=== PATIENT | female | born 1995 | race Caucasian/White ===

== ENCOUNTER 2019-11-08 12:57 | Outpatient (CLI) | payer OTHER ==
[2019-11-08 13:35] LABS: APPEARANCE,URINE CLOUDY; BILIRUBIN,URINE NEGATIVE (NEGATIVE); COLOR,URINE YELLOW; GLUCOSE, URINE NEGATIVE (NEGATIVE); KETONES,URINE NEGATIVE (NEGATIVE); LEUKOCYTE ESTERASE,URINE LARGE (NEGATIVE); NITRITE,URINE NEGATIVE (NEGATIVE); PROTEIN,URINE 30 mg/dL (NEGATIVE); URINE SPECIFIC GRAVITY 1.017; UROBILINOGEN,URINE NEGATIVE mg/dL (<2.0)
[2019-11-08 13:54] LABS: URINE AMPHETAMINES SCREEN NEGATIVE; URINE BARBITURATES SCREEN NEGATIVE; URINE BENZODIAZEPINES SCREEN NEGATIVE; URINE COCAINE SCREEN NEGATIVE; URINE MARIJUANA (THC) SCREEN NEGATIVE; URINE METHADONE SCREEN NEGATIVE; URINE PHENCYCLIDINE SCREEN NEGATIVE
--- NOTE | 2019-11-08 13:54 | Non Stress Test Report ---
Non Stress Test Datetime Report Generated by CPN: 11/08/2019 13:54 DEMOGRAPHIC EGA NST: 39.6 MONITORING Monitor Explained: Monitor Explained; Test Explained; Patient Verbalized Understanding Time on Monitor: 11/08/2019 13:22 Time off Monitor: 11/08/2019 13:51 NST Duration: 29 NST INTERVENTIONS NST Interventions: None Physician Notified NST: Dr Mcdonough BABY A: [id number] BABY A Movement : Present Contraction Frequency : irregular FHR Baseline : 140 Accelerations : 15X15 Decelerations : None Variability : Moderate 6-25bpm NST Review: Meets Criteria for Reactive NST NST Review and Verified By : TMartin,RN NST Results: Reactive NST REPORT Report Trigger: Send Report
== END 2019-11-08 14:03 | disposition home or self-care (01) ==
LOC: LC 12:57
PROVIDERS: ATTEND Obstetrics & Gynecology
DX: O24.419 Gestational diabetes mellitus in pregnancy, unspecified control (principal); Z3A.39 39 weeks gestation of pregnancy; Z91.030 Bee allergy status
CPT/HCPCS: 59025; 80307; 81005; 84112

== ENCOUNTER 2019-11-09 09:53 | Inpatient (IN) | payer OTHER ==
[2019-11-12] MEDS ORDERED: RINGERS SOLUTION,LACTATED 1,000 ML IV ONE (20:42)
[2019-11-12] MEDS ORDERED: RINGERS SOLUTION,LACTATED 1,000 ML IV PRN (20:42)
[2019-11-12 21:14] LABS: ABSOLUTE BASOPHILS # (AUTO) 0.2 10^3/uL (0.0-0.2); ABSOLUTE EOSINOPHILS # (AUTO) 0.1 10^3/uL (0.0-0.6); ABSOLUTE LYMPHOCYTES (AUTO) 1.7 10^3/uL (0.5-4.7); ABSOLUTE MONOCYTES (AUTO) 1.1 10^3/uL (0.1-1.4); BASOPHILS % (AUTO) 1.1 % (0-2); EOSINOPHILS % (AUTO) 0.8 % (0-6); HEMATOCRIT 33.5 % (36.0-47.0); HEMOGLOBIN 11.2 g/dL (12.0-15.5); LYMPHOCYTES % (AUTO) 12.1 % (13-45); MEAN CORPUSCULAR HEMOGLOBIN 25.8 pg (27.0-33.4); MEAN CORPUSCULAR HGB CONC 33.6 g/dL (32.0-36.0); MEAN CORPUSCULAR VOLUME 77 fl (80-97); MONOCYTES % (AUTO) 7.6 % (3-13); PLATELET COUNT 214 10^3/uL (150-450); RED BLOOD COUNT 4.36 10^6/uL (3.72-5.28); RED CELL DISTRIBUTION WIDTH 17.2 % (11.5-14.0); SEGMENTED NEUTROPHILS % (AUTO) 78.4 % (42-78); TOTAL CELLS COUNTED % (AUTO) 100 %; WHITE BLOOD COUNT 14.1 10^3/uL (4.0-10.5)
[2019-11-12 21:36] LABS: APPEARANCE,URINE SLIGHTLY-CLOUDY; BILIRUBIN,URINE NEGATIVE (NEGATIVE); COLOR,URINE YELLOW; GLUCOSE, URINE NEGATIVE (NEGATIVE); KETONES,URINE NEGATIVE (NEGATIVE); LEUKOCYTE ESTERASE,URINE SMALL (NEGATIVE); NITRITE,URINE NEGATIVE (NEGATIVE); PROTEIN,URINE NEGATIVE (NEGATIVE); UROBILINOGEN,URINE NEGATIVE mg/dL (<2.0)
[2019-11-12 21:37] LABS: URINE AMPHETAMINES SCREEN NEGATIVE; URINE BARBITURATES SCREEN NEGATIVE; URINE BENZODIAZEPINES SCREEN NEGATIVE; URINE COCAINE SCREEN NEGATIVE; URINE MARIJUANA (THC) SCREEN NEGATIVE; URINE METHADONE SCREEN NEGATIVE; URINE PHENCYCLIDINE SCREEN NEGATIVE
[2019-11-12] MEDS ORDERED: ACETAMINOPHEN 325 MG TABLET PO PRN (21:37)
[2019-11-12] MEDS ORDERED: MAG HYDROX/AL HYDROX/SIMETH SUSP 30 ML UDCUP PO PRN (21:37)
[2019-11-12] MEDS ORDERED: ZOLPIDEM TARTRATE 5 MG TABLET PO PRN (21:37)
[2019-11-12] MEDS ORDERED: DINOPROSTONE 10 MG VAGINAL INSERT.SR PV ONE (21:37)
[2019-11-12] MEDS ORDERED: DINOPROSTONE 10 MG VAGINAL INSERT.SR ONE (21:45)
--- NOTE | 2019-11-13 07:26 | Admission Physical ---
Datetime Report Generated by CPN: 11/13/2019 07:25 CURRENT ADMISSION Chief Complaint: Scheduled Induction of Labor Indication for Induction: Maternal Diabetes Admit Impression : Term, Intrauterine ; No Active Labor; Intact Membranes; Induction of Labor Admit Plan: Admit to Unit; Initiate Labor Induction Protocol ALLERGIES Medication Allergies: No Medication Allergies: venom-honey bee (11/12/2019) Latex: No Latex Allergies Food Allergies: n/a Environmental Allergies: bee stings OBSTETRICAL HISTORY EDC: 11/09/2019 00:00 : 1 Para: 0 Term: 0 : 0 SAB: 0 IAB: 0 Ectopic: 0 Livin Cesareans: 0 VBACs: 0 Multiple Births: 0 Gestational Diabetes: No Rh Sensitization: No Incompetent Cervix: No SABRINA: No Infertility: No ART Treatment: No Uterine Anomaly: No IUGR: No Hx Previous C/S: No Macrosomia: No Hx Loss/Stillborn: No PIH: No Hx : No Placenta Previa/Abruption: No Depression/PP Depression: No PTL/PROM: No Post Hemorrhage: No Current Procedures: Ultrasound; NST Obstetrical History Comments: G1- current SEE RECORDS Alcohol: No Marijuana : No Cocaine: No Other Illicit Drugs: No Cigarettes: Never Smoker. 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 Surgery: No Heart Disease: No Hosp/Surgery: No Autoimmune Disorder: No Anesthetic Complications: No Kidney Disease: No Abnormal Pap Smear: No Neuro/Epilepsy: No Psychiatric Disorders: No Other Medical Diseases: No Hepatitis/Liver Disease: No Significant Family History: No Varicosities/Phlebitis: No Trauma/Violence : No Thyroid Dysfunction: No Medical History Comments: cyst on ovaries ruptured INFECTIOUS HISTORY Gonorrhea: No Genital Herpes: No Chlamydia: No Tuberculosis: No Syphilis: No Hepatitis: No HIV/AIDS Exposure: No Rash or Viral Illness: No HPV: No PHYSICAL EXAM General: Normal HEENT: Normal Neurologic: Normal Thyroid: Deferred Heart: Normal Lungs: Normal Breast: Deferred Back: Normal Abdomen: Normal Genitourinary Exam: Normal Extremities: Normal DTRs: Normal Pelvic Type: Adequate Vital Signs: Reviewed VAGINAL EXAM Dilatation: 1 Effacement: 50 Station: -2 Contraction Comments: irreg MEMBRANES Membranes: Intact FETUS A EGA: 40.4 Monitoring: External US FHR- Baseline: 120 Variability: Moderate 6-25bpm Accelerations: 15X15 Decelerations: None FHR Category: Category I Presentation: Vertex Admit Comment: 24yo at 40+4ega presents for IOL due to A1GDM. GBS negative. uncomp o/w. EFW 8#3oz. EFW 83%. Ancticipate . Cervidil for IOL and poss cooks catheter with pitocin in am. PLANS FOR LABOR AND DELIVERY Labor and Delivery: Plan Pain Management: Natural Feeding Preference: Breast Benefit of Breast Feed Discussed: Yes Circumcision: Yes INFORMED CONSENT Informed Consent Obtained: Vaginal Delivery; Induction of Labor; Risks, Benefits and Alternatives Discussed Signature: with User ID: [email or web address]
[2019-11-13] MEDS ORDERED: MISOPROSTOL 0.2 MG TABLET ONE (10:40)
[2019-11-13] MEDS ORDERED: OXYTOCIN 10 UNIT/ML VIAL ONE (10:40)
[2019-11-13] MEDS ORDERED: LIDOCAINE 1% INJ-PF (10 MG/ML) 30 ML SDV ONE (10:41)
[2019-11-13] MEDS ORDERED: OXYTOCIN/0.9 % SODIUM CHLORIDE 30 UNIT/500 ML RTUINJ ONE (10:41)
[2019-11-13] MEDS ORDERED: OXYTOCIN/0.9 % SODIUM CHLORIDE 30 UNIT/500 ML RTUINJ IV PRN (11:25)
[2019-11-13] MEDS ORDERED: PROMETHAZINE HCL INJ 25 MG/1 ML VIAL ONE (16:27)
[2019-11-13] MEDS ORDERED: NALBUPHINE HCL INJ 10 MG/1 ML AMPULE ONE (16:27)
[2019-11-13] MEDS ORDERED: NALBUPHINE HCL INJ 10 MG/1 ML AMPULE INJ ONE (16:27)
[2019-11-13] MEDS ORDERED: PROMETHAZINE HCL INJ 25 MG/1 ML VIAL IV ONE (16:28)
[2019-11-14] MEDS ORDERED: DIBUCAINE 1% OINTMENT 28 GM TP PRN (03:49)
[2019-11-14] MEDS ORDERED: MEASLES,MUMPS&RUBELLA VACC/PF 0.5 ML VIAL SUBCUT PRN (03:49)
[2019-11-14] MEDS ORDERED: NA PHOS,M-B/NA PHOS,DI-BA (ADULT) 133 ML ENEMA PR PRN (03:49)
[2019-11-14] MEDS ORDERED: MAGNESIUM HYDROXIDE SUSP 30 ML UDCUP PO PRN (03:49)
[2019-11-14] MEDS ORDERED: OXYTOCIN/0.9 % SODIUM CHLORIDE 30 UNIT/500 ML RTUINJ IV PRN (03:49)
[2019-11-14] MEDS ORDERED: ACETAMINOPHEN WITH CODEINE #3 TABLET PO PRN (03:49)
[2019-11-14] MEDS ORDERED: BENZOCAINE/MENTHOL AEROSOL SPRAY 56 ML TOP PRN (03:49)
[2019-11-14] MEDS ORDERED: DIPHENHYDRAMINE HCL 25 MG CAPSULE PO PRN (03:49)
[2019-11-14] MEDS ORDERED: GLYCERIN/WITCH HAZEL LEAF 1 EACH MED..WIPE TP PRN (03:49)
[2019-11-14] MEDS ORDERED: PROMETHAZINE HCL 25 MG TABLET PO PRN (03:49)
[2019-11-14] MEDS ORDERED: DIPH/PERTUSS(ACELL)/TETANUS VAC/PF 0.5 ML SYR (>=10YO) IM PRN (03:49)
[2019-11-14] MEDS ORDERED: ACETAMINOPHEN 650 MG SUPP.RECT PR PRN (03:49)
[2019-11-14] MEDS ORDERED: PSEUDOEPHEDRINE HCL 30 MG TABLET PO PRN (03:49)
[2019-11-14] MEDS ORDERED: PROMETHAZINE HCL INJ 25 MG/1 ML VIAL IV PRN (03:49)
[2019-11-14] MEDS ORDERED: PROMETHAZINE HCL 25 MG SUPP.RECT PR PRN (03:49)
[2019-11-14] MEDS ORDERED: ZOLPIDEM TARTRATE 5 MG TABLET PO PRN (03:49)
--- NOTE | 2019-11-14 04:33 | Delivery Summary ---
Del Sum A-C Datetime Report Generated by CPN: 11/14/2019 04:33 DELIVERY PERSONNEL DELIVERY PERSONNEL: [id number] Delivery Doctor:: Melissa Scott MD Labor and Delivery Nurse:: Mitzi Rhoades RN Nursery Nurse:: Clara Carrillo RN Ceramic Artist/PROFESSOR OF MANAGEMENT: Cassidy Daniel, ST MATERNAL INFORMATION Delivery Anesthesia: None Medications After Delivery: Pitocin 30 Units in 500ml NS/D5W Estimated Blood Loss (ml): 250 Delivery QBL: 250 Maternal Complications: None LABOR SUMMARY EDC: 11/09/2019 00:00 No. Babies in Womb: 1 Attempted: No Labor Anesthesia: None LABOR INFORMATION Reason for Induction: Maternal Diabetes Onset of Labor: 11/13/2019 13:25 Complete Dilatation: 11/14/2019 00:18 Cervical Ripening Agents: Cervidil Oxytocin: Augmentation Group B Beta Strep: negative Antibiotics # of Doses: n/a Steroids Given: None Reason Steroids Not Administered: Not Applicable MEMBRANES Membranes Rupture Method: Artificial Rupture of Membranes: 11/13/2019 13:25 Length of Rupture (hr): 13.85 Amniotic Fluid Color: Clear Amniotic Fluid Amount: Small STAGES OF LABOR Stage 1 hr: 10 Stage 1 min: 53 Stage 2 hr: 2 Stage 2 min: 58 Stage 3 hr: 0 Stage 3 min: 24 Total Time in Labor hr: 14 Total Time in Labor min: 15 VAGINAL DELIVERY Episiotomy: None Laceration #1: Perineal Laceration Extension #1: Fourth Degree Laceration #2: None Laceration Extension #2: N/A Laceration #3: None Laceration Extension #3: N/A Laceration Repair: Yes Laceration Repair Note: Small fourth degree with repair of 0.5 cm rectal mucosa with running 3-0 chromic suture approximating the internal anal sphincter. The capsule of the external anal sphincter was brought together with 3 figure 8 sutures of 3-0 chromic suture placed at 6, 3 and 12 oclock. The posterior portion of the capsule was intact. The deep tissues of the perineum was closed with interupted sutures. The skin was closed with a running subcuticular suture. Rectal exam was intact with good tone afterwards. Sponge Count Correct: Vaginal Sweep Performed Sharps Count Correct: Yes CSECTION DELIVERY Primary Indication: N/A Secondary Indication: N/A CSection Incidence: N/A Labor: N/A Elective: N/A CSection Incision: N/A BABY A INFORMATION Infant Delivery Date/Time: 11/14/2019 03:16 Method of Delivery: Vaginal Nurse Controlled Delivery: No Born in Route : No : N/A Forceps: N/A Vacuum Extraction: N/A Shoulder Dystocia : Yes SHOULDER DYSTOCIA BABY A 1st Intervention to Resolve: McRobert's Maneuver Verify NO Fundal Pressure: No Fundal Pressure Applied Arm Under Symphisis at Del: Right Shoulder Dystocia Comments: Easily resolved shoulder dystocia. PRESENTATION/POSITION BABY A Presentation: Cephalic Cephalic Presentation: Vertex Vertex Position: Left Occipital Anterior Breech Presentation: N/A PLACENTA INFORMATION BABY A Placenta Delivery Time : 11/14/2019 03:40 Placenta Method of Delivery: Spontaneous Placenta Status: Delivered SCORES BABY A Heart Rate 1 min: >100 bpm Resp Effort 1 min: Good Cry Reflex Irritability 1 min: Cough or Sneeze or Pulls Away Muscle Tone 1 min: Active Motion Color 1 min: Blue/Pale Resuscitation Effort 1 min: Tactile Stimulation SCORE 1 MIN: 8 Heart Rate 5 min: >100 bpm Resp Effort 5 min: Good Cry Reflex Irritability 5 min: Cough or Sneeze or Pulls Away Muscle Tone 5 min: Active Motion Color 5 min: Body [place], Extremities Blue Resuscitation Effort 5 min: N/A SCORE 5 MIN: 9 INFANT INFORMATION BABY A Gestational Age at Delivery: 40.5 Gestational Status: Full Term- 39- 40.6 Weeks Infant Outcome : Liveborn Condition : Stable Infant Sex: Male IDENTIFICATION BABY A Verification Date/Time: 11/14/2019 03:32 ID Band Number: [id number] Mother's Name Verified: Yes Infant RN Verifying Infant: DENISE Neves/DENISE Henderson WEIGHT/LENGTH BABY A Birthweight (gm): 4260 Infant Weight (lb): 9 Weight (oz): 6 Infant Length (in): 22.00 Length (cm): 55.88 CORD INFORMATION BABY A No. Cord Vessels: 3 Nuchal Cord : N/A Cord Blood Taken: Yes-For Storage (Mom's Blood type +) ASSESSMENT BABY A Infant Complications: None Physical Findings at Delivery: Within Normal Limits Infant Respirations: Appears Normal Skin to Skin: Yes Transferred To: Remains with Mother SIGNATURES Signature: with User ID: [email or web address]
[2019-11-14] MEDS ORDERED: IBUPROFEN 800 MG TABLET ONE (05:20)
[2019-11-14] MEDS: IBUPROFEN 800 MG TABLET PO SCH ×3 (05:24→21:37)
--- NOTE | 2019-11-14 09:59 | PDOC PROGRESS REPORT ---
Subjective-OB Progress Note for:: 11/14/19 Subjective: Delivery this am. Pt doing well, no concerns. She reports light bleeding, reg diet and voiding without difficulty. Physical Exam (OB) Vital Signs: Temp Pulse Resp BP Pulse Ox 98.1 F 89 18 135/71 H 99 11/14/19 08:00 11/14/19 08:00 11/14/19 08:00 11/14/19 08:00 11/14/19 08:00 Intake & Output 11/13/19 11/14/19 11/15/19 06:59 06:59 06:59 Intake Total 1600 Output Total 500 Balance 1100 Weight 114.1 kg - Lochia Lochia Amount: Small 10-25 ml Lochia Color: Rubra/Red - Abdomen Description: Soft, Round Fundal Description: Firm, Midline Fundal Height: u/u - u/2 Objective-Diagnostic Laboratory: 11/12/19 21:02 Assessment and Plan(PN) - Assessment and Plan (1) Encounter for induction of labor Is this a current diagnosis for this admission?: Yes (2) Fourth degree perineal laceration during delivery, delivered Is this a current diagnosis for this admission?: Yes (3) Gestational diabetes mellitus (GDM) in childbirth, diet controlled Is this a current diagnosis for this admission?: Yes (4) Shoulder dystocia during labor and delivery, delivered Is this a current diagnosis for this admission?: Yes - Time Spent with Patient Time with patient: Less than 15 minutes Medications reviewed and adjusted accordingly: Yes - Disposition Anticipated Discharge: Home Within: within 24 hours
[2019-11-14] MEDS: FAMOTIDINE 20 MG TABLET PO SCH ×2 (10:08→21:37)
[2019-11-14] MEDS: PRENATAL VITAMIN W DHA CAPSULE PO SCH (10:08)
[2019-11-14] MEDS: SENNOSIDES/DOCUSATE 8.6-50 MG 1 EACH TABLET PO SCH (10:08)
[2019-11-14] MEDS: DOCUSATE SODIUM 100 MG CAPSULE PO SCH ×2 (10:08→17:50)
[2019-11-14] MEDS: FERROUS SULFATE 325 MG TABLET PO SCH ×2 (10:08→17:50)
[2019-11-14] MEDS: ACETAMINOPHEN WITH CODEINE #3 TABLET PO PRN (10:15)
[2019-11-15] MEDS: IBUPROFEN 800 MG TABLET PO SCH ×3 (05:36→22:16)
[2019-11-15 06:28] LABS: HEMATOCRIT 26.9 % (36.0-47.0); MEAN CORPUSCULAR HEMOGLOBIN 25.4 pg (27.0-33.4); MEAN CORPUSCULAR HGB CONC 32.8 g/dL (32.0-36.0); MEAN CORPUSCULAR VOLUME 78 fl (80-97); PLATELET COUNT 171 10^3/uL (150-450); RED BLOOD COUNT 3.47 10^6/uL (3.72-5.28); RED CELL DISTRIBUTION WIDTH 17.2 % (11.5-14.0); WHITE BLOOD COUNT 19.2 10^3/uL (4.0-10.5)
[2019-11-15 06:45] LABS: HEMOGLOBIN 8.8 g/dL (12.0-15.5)
[2019-11-15] MEDS: PRENATAL VITAMIN W DHA CAPSULE PO SCH (09:36)
[2019-11-15] MEDS: SENNOSIDES/DOCUSATE 8.6-50 MG 1 EACH TABLET PO SCH (09:36)
[2019-11-15] MEDS: FERROUS SULFATE 325 MG TABLET PO SCH ×2 (09:36→18:19)
[2019-11-15] MEDS: FAMOTIDINE 20 MG TABLET PO SCH ×2 (09:36→22:16)
[2019-11-15] MEDS: DOCUSATE SODIUM 100 MG CAPSULE PO SCH ×2 (09:36→18:19)
--- NOTE | 2019-11-15 10:23 | PDOC PROGRESS REPORT ---
Subjective-OB Progress Note for:: 11/15/19 Subjective: Pt doing well, using dermaplast spray and donut for 4th deg lac. States it feels okay, sore. Bleeding light, reg diet and voiding without difficulty. Physical Exam (OB) Vital Signs: Temp Pulse Resp BP Pulse Ox 98.0 F 80 16 131/56 H 99 11/15/19 07:40 11/15/19 07:40 11/15/19 07:40 11/15/19 07:40 11/15/19 07:40 Intake & Output 11/14/19 11/15/19 11/16/19 06:59 06:59 06:59 Intake Total 900 2080 Output Total 500 Balance 900 1580 - PIH/Pre-Eclampsia Headache: Absent Epigastric Pain: No Visual Changes: No - Lochia Lochia Amount: Scant < 10 ml Lochia Color: Rubra/Red - Abdomen Description: Soft Hernia Present: No Fundal Description: Firm, Midline Fundal Height: u/u - u/2 Objective-Diagnostic Laboratory: 11/15/19 05:44 11/15/19 05:44 WBC 19.2 H RBC 3.47 L Hgb 8.8 L D Hct 26.9 L MCV 78 L MCH 25.4 L MCHC 32.8 RDW 17.2 H Plt Count 171 Assessment and Plan(PN) - Assessment and Plan (1) Encounter for induction of labor Is this a current diagnosis for this admission?: Yes (2) Fourth degree perineal laceration during delivery, delivered Is this a current diagnosis for this admission?: Yes (3) Gestational diabetes mellitus (GDM) in childbirth, diet controlled Is this a current diagnosis for this admission?: Yes (4) Shoulder dystocia during labor and delivery, delivered Is this a current diagnosis for this admission?: Yes - Time Spent with Patient Time with patient: Less than 15 minutes Medications reviewed and adjusted accordingly: Yes - Disposition Anticipated Discharge: Home Within: within 24 hours
[2019-11-16] MEDS: IBUPROFEN 800 MG TABLET PO SCH ×2 (05:51→13:45)
[2019-11-16] MEDS: ACETAMINOPHEN WITH CODEINE #3 TABLET PO PRN (10:00)
[2019-11-16] MEDS: PRENATAL VITAMIN W DHA CAPSULE PO SCH (10:01)
[2019-11-16] MEDS: DOCUSATE SODIUM 100 MG CAPSULE PO SCH (10:01)
[2019-11-16] MEDS: FAMOTIDINE 20 MG TABLET PO SCH (10:01)
[2019-11-16] MEDS: FERROUS SULFATE 325 MG TABLET PO SCH (10:01)
[2019-11-16] MEDS: SENNOSIDES/DOCUSATE 8.6-50 MG 1 EACH TABLET PO SCH (10:01)
--- NOTE | 2019-11-16 10:48 | PDOC DISCHARGE SUMMARY ---
Impression - Admit/DC Date/PCP Admission Date/Primary Care Provider: 11/12/19 20:25 NO [facility] Discharge Date: 11/16/19 - Discharge Diagnosis (1) Encounter for induction of labor Is this a current diagnosis for this admission?: Yes (2) Fourth degree perineal laceration during delivery, delivered Is this a current diagnosis for this admission?: Yes (3) Gestational diabetes mellitus (GDM) in childbirth, diet controlled Is this a current diagnosis for this admission?: Yes (4) Shoulder dystocia during labor and delivery, delivered Is this a current diagnosis for this admission?: Yes - Additional Information Resuscitation Status: Full Code Discharge Diet: Regular Discharge Activity: Balance Activity w/Rest, Pelvic Rest Referrals: [facility],NO [Primary Care Provider] - Prescriptions: Ibuprofen [Motrin 800 mg Tablet] 800 mg PO Q8HP PRN #60 tablet PRN Reason: Home Medications: Vit No.130/Iron/Folic [ Tablet] 1 each PO DAILY 11/08/19 Ibuprofen [Motrin 800 mg Tablet] 800 mg PO Q8HP PRN #60 tablet 11/16/19 HPI Gestational Age: 39 Reason(s) for Admission: Induction of Labor, Gestional Diabetes Procedures: NST Intrapartum Procedure(s): Spontaneous Vaginal Delivery Intrapartum Procedure Note: Shoulder Dystocia Complication(s): Laceration-Perineal Laceration-Degree: 4th Results Laboratory Results: WBC 19.2 10^3/uL (4.0-10.5) H 11/15/19 05:44 RBC 3.47 10^6/uL (3.72-5.28) L 11/15/19 05:44 Hgb 8.8 g/dL (12.0-15.5) L D 11/15/19 05:44 Hct 26.9 % (36.0-47.0) L 11/15/19 05:44 MCV 78 fl (80-97) L 11/15/19 05:44 MCH 25.4 pg (27.0-33.4) L 11/15/19 05:44 MCHC 32.8 g/dL (32.0-36.0) 11/15/19 05:44 RDW 17.2 % (11.5-14.0) H 11/15/19 05:44 Plt Count 171 10^3/uL (150-450) 11/15/19 05:44 Lymph % (Auto) 12.1 % (13-45) L 11/12/19 21:02 [place] % (Auto) 7.6 % (3-13) 11/12/19 21:02 Eos % (Auto) 0.8 % (0-6) 11/12/19 21:02 Baso % (Auto) 1.1 % (0-2) 11/12/19 21:02 Absolute Neuts (auto) 11.0 10^3/uL (1.7-8.2) H 11/12/19 21:02 Absolute Lymphs (auto) 1.7 10^3/uL (0.5-4.7) 11/12/19 21:02 Absolute Monos (auto) 1.1 10^3/uL (0.1-1.4) 11/12/19 21:02 Absolute Eos (auto) 0.1 10^3/uL (0.0-0.6) 11/12/19 21:02 Absolute Basos (auto) 0.2 10^3/uL (0.0-0.2) 11/12/19 21:02 Seg Neutrophils % 78.4 % (42-78) H 11/12/19 21:02 POC Glucose 101 mg/dL (70-110) 11/13/19 11:29 Urine Color YELLOW 11/12/19 20:40 Urine Appearance SLIGHTLY-CLOUDY 11/12/19 20:40 Urine pH 6.0 (5.0-9.0) 11/12/19 20:40 Ur Specific [place] 1.010 11/12/19 20:40 Urine Protein NEGATIVE mg/dL (NEGATIVE) 11/12/19 20:40 Urine Glucose (UA) NEGATIVE mg/dL (NEGATIVE) 11/12/19 20:40 Urine Ketones NEGATIVE mg/dL (NEGATIVE) 11/12/19 20:40 Urine Blood SMALL (NEGATIVE) H 11/12/19 20:40 Urine Nitrite NEGATIVE (NEGATIVE) 11/12/19 20:40 Urine Bilirubin NEGATIVE (NEGATIVE) 11/12/19 20:40 Urine Urobilinogen NEGATIVE mg/dL (<2.0) 11/12/19 20:40 Ur Leukocyte Esterase SMALL (NEGATIVE) H 11/12/19 20:40 Urine WBC (Auto) 9 /HPF 11/12/19 20:40 Urine RBC (Auto) 3 /HPF 11/12/19 20:40 Urine Bacteria (Auto) 3+ /HPF 11/12/19 20:40 Squamous Epi Cells Auto 8 /HPF 11/12/19 20:40 Urine Mucus (Auto) RARE /LPF 11/12/19 20:40 Urine Ascorbic Acid NEGATIVE (NEGATIVE) 11/12/19 20:40 Urine Opiates Screen NEGATIVE 11/12/19 20:40 Urine Methadone Screen NEGATIVE 11/12/19 20:40 Ur Barbiturates Screen NEGATIVE 11/12/19 20:40 Ur Phencyclidine Scrn NEGATIVE 11/12/19 20:40 Ur Amphetamines Screen NEGATIVE 11/12/19 20:40 U Benzodiazepines Scrn NEGATIVE 11/12/19 20:40 Urine Cocaine Screen NEGATIVE 11/12/19 20:40 U Marijuana (THC) Screen NEGATIVE 11/12/19 20:40 RPR NONREACTIVE (NONREACTIVE) 11/12/19 21:02 Blood Type A POSITIVE 11/12/19 21:02 Antibody Screen NEGATIVE 11/12/19 21:02 Plan Plan of Treatment: f/u at [facility] 4 wks, stool softeners, sitz bath bid Time Spent: Less than 30 Minutes
[2019-11-16 11:52] VITALS: BP 135/71
== END 2019-11-16 14:02 | disposition home or self-care (01) | DRG 768 ==
LOC: LR 11-12 20:25 → 2S 11-14 05:58
PROVIDERS: ADMIT Student in an Organized Health Care Education/Training Program; ATTEND Obstetrics & Gynecology
PROC: 10E0XZZ Delivery of Products of Conception, External Approach (ICD-10-PCS; principal; 2019-11-14)
PROC: 0DQP0ZZ Repair Rectum, Open Approach (ICD-10-PCS; 2019-11-14)
DX: O24.429 Gestational diabetes mellitus in childbirth, unspecified control (principal); Z37.0 Single live birth; O70.3 Fourth degree perineal laceration during delivery; O66.0 Obstructed labor due to shoulder dystocia; Z3A.40 40 weeks gestation of pregnancy
CPT/HCPCS: 36415; 80307; 81001; 82962; 85025; 85027; 86592; 86850; 86900; 86901; C1758; J2300; J2550; J2590; J3490